=== PATIENT | male | born 1975 | race Caucasian/White ===

== ENCOUNTER 2017-10-27 14:26 | Emergency (ER) | payer MEDICAID ==
[~2017-10-27] VITALS: Ht 182.9 cm; Wt 130.6 kg
[2017-10-27 14:49] LABS: *BILIRUBIN,URIN 1+ (NEGATIVE); *BLOOD, URINE NEGATIVE (NEGATIVE); *CLARITY,URINE CLEAR (CLEAR); *COLOR,URINE DARK YELLOW (YELLOW); *KETONES,URINE NEGATIVE (NEGATIVE); *PROTEIN,URINE 1+ (NEGATIVE); *UROBILINOGEN,URINE 0.2 E.U./dl (NORMAL); LEUKOCYTE ESTERASE ,URINE NEGATIVE (NEGATIVE); NITRITE, URINE NEGATIVE (NEGATIVE); PH,URINE 6.5 (5.0-8.0); UGLUCOSE NEGATIVE (NEGATIVE)
--- NOTE | 2017-10-27 14:56 | NUR ---
LABS/URINE/EKG DONE, "SON" THE ADMINISTRATIVE ASSISTANT AT THE BEDSIDE A SITTER.
[2017-10-27 14:58] LABS: BASOPHILS # (AUTO) 0.1 K/uL (0.0-8.0); BASOPHILS % (AUTO) 0.9 % (0.0-2.0); EOSINOPHILS # (AUTO) 0.2 K/uL (0.0-0.7); EOSINOPHILS % (AUTO) 1.9 % (0.0-7.0); HEMATOCRIT 43.2 % (36.7-47.1); LYMPHOCYTES # (AUTO) 1.5 K/uL (20.0-40.0); LYMPHOCYTES % (AUTO) 19.1 % (20.5-51.5); MEAN CORPUSCULAR HEMOGLOBIN 29.9 uug (23.8-33.4); MEAN CORPUSCULAR HGB CONC 35 g/dL (32.5-36.3); MEAN CORPUSCULAR VOLUME 85.9 fL (73.0-96.2); MONOCYTES # (AUTO) 0.6 K/uL (2.0-10.0); MONOCYTES % (AUTO) 7.8 % (0.0-11.0); NEUTROPHILS # (AUTO) 5.7 K/uL (1.8-8.9); NEUTROPHILS % (AUTO) 70.3 % (38.5-71.5); PLATELET COUNT (AUTO) 211 K/uL (152-348); RED BLOOD CELL COUNT(AUTO) 5.03 MIL/uL (4.06-5.63); WHITE BLOOD COUNT (AUTO) 8.1 K/uL (3.6-10.2)
[2017-10-27 14:59] LABS: MUCUS,URINE MANY /LPF (0-FEW); WBC,URINE 0-3 /HPF (0-3)
[2017-10-27 15:06] LABS: CARBON DIOXIDE 26 mmol/L (21-32); CHLORIDE 100 mmol/L (98-107); CREATININE 1.1 mg/dL (0.6-1.3); GLUCOSE 125 mg/dL (74-106); POTASSIUM 3.4 mmol/L (3.5-5.1); UREA NITROGEN, BLOOD 15 mg/dL (7-18)
[2017-10-27 15:09] LABS: ETHANOL < 3 MG/DL (0-0)
[2017-10-27 15:10] LABS: *AMPHETAMINE, URINE POSITIVE (NEGATIVE); *BARBITURATE, URINE NEGATIVE (NEGATIVE); *CANNABINOID, URINE POSITIVE (NEGATIVE); *COCCAINE, URINE NEGATIVE (NEGATIVE); *OPIATE, URINE POSITIVE (NEGATIVE); *PHENCYCLIDINE SCREEN,URINE NEGATIVE (NEGATIVE)
[2017-10-27 15:12] LABS: ALANINE AMINOTRANSFERASE 113 U/L (16-63); ALKALINE PHOSPHATASE 49 U/L (50-136); ASPARTATE AMINOTRANSFERASE 64 U/L (15-37); BILIRUBIN,DIRECT 0.1 mg/dL (0.0-0.2); BILIRUBIN,TOTAL 0.5 mg/dL (0.2-1.0); TOTAL PROTEIN, SERUM 7.5 g/dL (6.4-8.2)
[2017-10-27 15:13] LABS: ACETAMINOPHEN < 2.0 ug/mL (10-30)
--- NOTE | 2017-10-27 15:48 | NUR ---
Patient awake at this time, requesting more food. Provided by staff.
--- NOTE | 2017-10-27 15:53 | NUR ---
Patient "Medically Cleared" by ERMD. Unable to contact MARKETING OFFICER at this time, will continue to call.
--- NOTE | 2017-10-27 16:40 | NUR ---
PET EALUATOR ARRIVED.
--- NOTE | 2017-10-27 19:04 | NUR ---
SBAR REPORT TO LAURA DOBBS.
--- NOTE | 2017-10-27 21:00 | NUR ---
Asad called for transport, given trip#[id number], eta 2245pm. Pt to be transported to [facility]. .
--- NOTE | 2017-10-27 22:31 | NUR ---
Report given to Natalya DOBBS [facility].
--- NOTE | 2017-10-27 22:45 | NUR ---
Asad arrived to ER to transport pt to [facility].
[2017-10-27] MEDS ORDERED: POTASSIUM CHLORIDE 20 MEQ TAB.PRT.SR PO ONE (23:00)
[2017-10-27] MEDS ORDERED: POTASSIUM CHLORIDE 20 MEQ TAB.PRT.SR ONE (23:04)
--- NOTE | 2017-10-27 23:05 | NUR ---
Pt out of ER via [facility]. Report and documentation given to EMT. Pt to be transported to [facility].
== END 2017-10-27 23:07 | disposition short-term general hospital (02) ==
LOC: ER 14:26
DX: Z04.6 Encounter for general psychiatric examination, requested by authority (principal); F32.9 Major depressive disorder, single episode, unspecified
CPT/HCPCS: 36415; 71045; 80307; 85025; 93005; A4663; G0480; G0480-TC

== ENCOUNTER 2017-11-23 07:38 | Emergency (ER) | payer MEDICAID ==
[~2017-11-23] VITALS: Ht 172.7 cm; Wt 77.1 kg
[2017-11-23] MEDS ORDERED: LORAZEPAM 0.5 MG TABLET PO ONE (08:00)
[2017-11-23] MEDS ORDERED: LORAZEPAM 1 MG TABLET ONE (08:01)
[2017-11-23 08:18] LABS: BASOPHILS % (AUTO) 0.8 % (0.0-2.0); EOSINOPHILS # (AUTO) 0.1 K/uL (0.0-0.7); EOSINOPHILS % (AUTO) 2.3 % (0.0-7.0); HEMATOCRIT 43.1 % (36.7-47.1); HEMOGLOBIN 15.1 g/dL (12.5-16.3); LYMPHOCYTES # (AUTO) 1.1 K/uL (20.0-40.0); LYMPHOCYTES % (AUTO) 17.5 % (20.5-51.5); MEAN CORPUSCULAR HEMOGLOBIN 31.3 uug (23.8-33.4); MEAN CORPUSCULAR HGB CONC 35 g/dL (32.5-36.3); MEAN CORPUSCULAR VOLUME 89.1 fL (73.0-96.2); MONOCYTES # (AUTO) 0.6 K/uL (2.0-10.0); MONOCYTES % (AUTO) 9.4 % (0.0-11.0); NEUTROPHILS # (AUTO) 4.4 K/uL (1.8-8.9); PLATELET COUNT (AUTO) 128 K/uL (152-348); RED BLOOD CELL COUNT(AUTO) 4.84 MIL/uL (4.06-5.63); WHITE BLOOD COUNT (AUTO) 6.3 K/uL (3.6-10.2)
--- NOTE | 2017-11-23 08:21 | NUR ---
[facility] cr provided for pt.
[2017-11-23 08:27] LABS: CARBON DIOXIDE 28 mmol/L (21-32); CHLORIDE 97 mmol/L (98-107); GLUCOSE 159 mg/dL (74-106); POTASSIUM 3.6 mmol/L (3.5-5.1); UREA NITROGEN, BLOOD 12 mg/dL (7-18)
[2017-11-23 08:30] LABS: ETHANOL < 3 MG/DL (0-0)
[2017-11-23 08:33] LABS: ALANINE AMINOTRANSFERASE 264 U/L (16-63); ALKALINE PHOSPHATASE 65 U/L (50-136); ASPARTATE AMINOTRANSFERASE 193 U/L (15-37); BILIRUBIN,DIRECT 0.6 mg/dL (0.0-0.2); BILIRUBIN,TOTAL 1.6 mg/dL (0.2-1.0); EOSINOPHILS % (MANUAL) 2 % (0-8); LYMPHOCYTES % (MANUAL) 18 % (20-40); MONOCYTES % (MANUAL) 10 % (2-10); NEUTROPHILS % (MANUAL) 70 % (42-75); TOTAL PROTEIN, SERUM 7.4 g/dL (6.4-8.2)
[2017-11-23 08:35] LABS: ACETAMINOPHEN < 2.0 ug/mL (10-30)
--- NOTE | 2017-11-23 09:17 | NUR ---
katiana jack at bedside for psych eval.
[2017-11-23 10:25] LABS: *BILIRUBIN,URIN NEGATIVE (NEGATIVE); *BLOOD, URINE NEGATIVE (NEGATIVE); *CLARITY,URINE CLEAR (CLEAR); *COLOR,URINE YELLOW (YELLOW); *KETONES,URINE NEGATIVE (NEGATIVE); *PROTEIN,URINE NEGATIVE (NEGATIVE); LEUKOCYTE ESTERASE ,URINE NEGATIVE (NEGATIVE); NITRITE, URINE NEGATIVE (NEGATIVE); PH,URINE 6.5 (5.0-8.0); UGLUCOSE NEGATIVE (NEGATIVE)
[2017-11-23 10:27] LABS: BACTERIA,URINE FEW /HPF (NONE SEEN); RBC,URINE 0-3 /HPF (0-3); SQUAMOUS EPITHELIAL CELL,UR FEW /HPF (NONE SEEN)
--- NOTE | 2017-11-23 10:27 | NUR ---
pt resting, no sign of distress at this point.
[2017-11-23 10:38] LABS: *AMPHETAMINE, URINE POSITIVE (NEGATIVE); *BARBITURATE, URINE NEGATIVE (NEGATIVE); *CANNABINOID, URINE POSITIVE (NEGATIVE); *COCCAINE, URINE NEGATIVE (NEGATIVE); *OPIATE, URINE POSITIVE (NEGATIVE); *PHENCYCLIDINE SCREEN,URINE NEGATIVE (NEGATIVE)
--- NOTE | 2017-11-23 10:47 | NUR ---
uds and ua result just released. faxed the result to [facility] at [phone] per request.
--- NOTE | 2017-11-23 11:50 | NUR ---
faxed summary report and face sheet to ciarra at [facility] per request.
--- NOTE | 2017-11-23 12:44 | NUR ---
called heidi to follow up. was told to follow up with benji capone, at [phone]. per arpan at [facility], the pt case is being reviwed at this time.
--- NOTE | 2017-11-23 13:10 | NUR ---
hospital lunch provided ofr pt. pt finished it with good apetite.
--- NOTE | 2017-11-23 13:11 | NUR ---
renate called from [facility] and accepted the pt. called for ambulance, eta 1300, #[id number].
--- NOTE | 2017-11-23 13:23 | NUR ---
called [facility] at [phone] and gave report to miesha.
--- NOTE | 2017-11-23 14:30 | NUR ---
pt transfered to [facility] via [facility] in stable condition.
--- NOTE | 2017-11-23 14:31 | NUR ---
pt resting the wholer er stay. no complain.
== END 2017-11-23 14:39 | disposition other institution (70) ==
LOC: ER 07:42
DX: F23 Brief psychotic disorder (principal); F11.10 Opioid abuse, uncomplicated; F32.9 Major depressive disorder, single episode, unspecified
CPT/HCPCS: 36415; 80048; 80076; 80307; 81001; 85025; 99285; A4663; G0480 ×2; G0481

== ENCOUNTER 2017-12-22 17:54 | Emergency (ER) | payer MEDICAID ==
[~2017-12-22] VITALS: Ht 172.7 cm; Wt 77.1 kg
[2017-12-22 18:28] LABS: BASOPHILS % (AUTO) 0.7 % (0.0-2.0); EOSINOPHILS # (AUTO) 0.1 K/uL (0.0-0.7); EOSINOPHILS % (AUTO) 0.9 % (0.0-7.0); HEMATOCRIT 37.7 % (36.7-47.1); HEMOGLOBIN 13.2 g/dL (12.5-16.3); LYMPHOCYTES # (AUTO) 1.1 K/uL (20.0-40.0); LYMPHOCYTES % (AUTO) 17.9 % (20.5-51.5); MEAN CORPUSCULAR HGB CONC 35 g/dL (32.5-36.3); MEAN CORPUSCULAR VOLUME 88.8 fL (73.0-96.2); MONOCYTES # (AUTO) 0.8 K/uL (2.0-10.0); NEUTROPHILS # (AUTO) 4.3 K/uL (1.8-8.9); NEUTROPHILS % (AUTO) 68.5 % (38.5-71.5); PLATELET COUNT (AUTO) 138 K/uL (152-348); RED BLOOD CELL COUNT(AUTO) 4.25 MIL/uL (4.06-5.63); WHITE BLOOD COUNT (AUTO) 6.3 K/uL (3.6-10.2)
[2017-12-22 18:36] LABS: CARBON DIOXIDE 28 mmol/L (21-32); CHLORIDE 101 mmol/L (98-107); GLUCOSE 109 mg/dL (74-106); POTASSIUM 3.2 mmol/L (3.5-5.1); UREA NITROGEN, BLOOD 7 mg/dL (7-18)
[2017-12-22 18:39] LABS: ETHANOL < 3 MG/DL (0-0)
[2017-12-22 18:48] LABS: ALANINE AMINOTRANSFERASE 99 U/L (16-63); ALKALINE PHOSPHATASE 50 U/L (50-136); ASPARTATE AMINOTRANSFERASE 135 U/L (15-37); BILIRUBIN,DIRECT 0.4 mg/dL (0.0-0.2); BILIRUBIN,TOTAL 1.3 mg/dL (0.2-1.0); TOTAL PROTEIN, SERUM 7.7 g/dL (6.4-8.2)
[2017-12-22 18:51] LABS: ACETAMINOPHEN < 2.0 ug/mL (10-30)
--- NOTE | 2017-12-22 19:49 | NUR ---
Debbie Barrera RN at bedside for psych evaluation.
[2017-12-22] MEDS ORDERED: ACETAMINOPHEN ES 500 MG TABLET PO ONE (20:15)
[2017-12-22] MEDS ORDERED: LORAZEPAM 0.5 MG TABLET PO ONE (20:15)
[2017-12-22] MEDS ORDERED: LORAZEPAM 1 MG TABLET ONE (20:21)
[2017-12-22] MEDS ORDERED: ACETAMINOPHEN ES 500 MG TABLET ONE (20:21)
--- NOTE | 2017-12-22 20:25 | NUR ---
Pt provided urine, sent to lab.
[2017-12-22] MEDS ORDERED: POTASSIUM BICARBONATE/CIT AC 25 MEQ TABLET.EFF PO ONE (20:30)
--- NOTE | 2017-12-22 20:31 | NUR ---
Pt refused Klyte med, reports he prefers a pill, notified.
[2017-12-22 20:32] LABS: *BILIRUBIN,URIN 1+ (NEGATIVE); *BLOOD, URINE NEGATIVE (NEGATIVE); *CLARITY,URINE SLIGHTLY CLOUDY (CLEAR); *COLOR,URINE DARK YELLOW (YELLOW); *KETONES,URINE 1+ (NEGATIVE); *PROTEIN,URINE 1+ (NEGATIVE); LEUKOCYTE ESTERASE ,URINE NEGATIVE (NEGATIVE); NITRITE, URINE NEGATIVE (NEGATIVE); PH,URINE 5.5 (5.0-8.0); UGLUCOSE NEGATIVE (NEGATIVE)
[2017-12-22] MEDS ORDERED: POTASSIUM BICARBONATE/CIT AC 25 MEQ TABLET.EFF ONE (20:34)
[2017-12-22] MEDS ORDERED: POTASSIUM CHLORIDE 20 MEQ TAB.PRT.SR ONE (20:39)
[2017-12-22 20:40] LABS: BACTERIA,URINE MODERATE /HPF (NONE SEEN); URINE AMORPHOUS URATE MODERATE /HPF; WBC,URINE 0-3 /HPF (0-3)
[2017-12-22 20:41] LABS: MUCUS,URINE MODERATE /LPF (0-FEW)
[2017-12-22] MEDS ORDERED: POTASSIUM CHLORIDE 20 MEQ TAB.PRT.SR PO ONE (20:45)
[2017-12-22 20:47] LABS: *AMPHETAMINE, URINE POSITIVE (NEGATIVE); *BARBITURATE, URINE NEGATIVE (NEGATIVE); *CANNABINOID, URINE POSITIVE (NEGATIVE); *COCCAINE, URINE NEGATIVE (NEGATIVE); *OPIATE, URINE POSITIVE (NEGATIVE); *PHENCYCLIDINE SCREEN,URINE NEGATIVE (NEGATIVE)
--- NOTE | 2017-12-22 22:50 | NUR ---
Pt accepted at [facility], [address] [place] [address], accepting MD Dr. Blum, Number to report to .
--- NOTE | 2017-12-22 23:22 | NUR ---
Called [facility] [employer] Trip#[id number], given ETA 30min ~0000. To transport patient to [facility].
--- NOTE | 2017-12-22 23:36 | NUR ---
Report given to Brain DOBBS [facility].
--- NOTE | 2017-12-23 | NUR ---
Asad arrived to ER to transport pt to [facility]. Report and documentation given to EMT.
--- NOTE | 2017-12-23 00:14 | NUR ---
Pt out of ER via [facility], to be transported to [facility].
== END 2017-12-23 00:20 | disposition short-term general hospital (02) ==
LOC: ER 17:56
DX: F32.9 Major depressive disorder, single episode, unspecified (principal); R45.851 Suicidal ideations; F15.10 Other stimulant abuse, uncomplicated; F11.10 Opioid abuse, uncomplicated; D69.6 Thrombocytopenia, unspecified; R94.5 Abnormal results of liver function studies; F41.9 Anxiety disorder, unspecified; F17.200 Nicotine dependence, unspecified, uncomplicated; Z59.0 Homelessness
CPT/HCPCS: 36415; 80048; 80076; 80307; 81001; 85025; 99285; A4663; A9150; G0480 ×2; G0481

== ENCOUNTER 2017-12-30 18:02 | Emergency (ER) | payer MEDICAID ==
[~2017-12-30] VITALS: Ht 182.9 cm; Wt 108.9 kg
--- NOTE | 2017-12-30 18:10 | NUR ---
Pt states he was prescribed medications from [facility] but he did not fill the Rx's and is not taking any medications currently.
[2017-12-30 19:06] LABS: BASOPHILS # (AUTO) 0.1 K/uL (0.0-8.0); EOSINOPHILS # (AUTO) 0.2 K/uL (0.0-0.7); EOSINOPHILS % (AUTO) 2.6 % (0.0-7.0); HEMATOCRIT 43.6 % (36.7-47.1); HEMOGLOBIN 15.4 g/dL (12.5-16.3); LYMPHOCYTES # (AUTO) 2.2 K/uL (20.0-40.0); LYMPHOCYTES % (AUTO) 33.4 % (20.5-51.5); MEAN CORPUSCULAR HEMOGLOBIN 31.2 uug (23.8-33.4); MEAN CORPUSCULAR HGB CONC 35 g/dL (32.5-36.3); MEAN CORPUSCULAR VOLUME 88.5 fL (73.0-96.2); MONOCYTES # (AUTO) 0.8 K/uL (2.0-10.0); MONOCYTES % (AUTO) 11.4 % (0.0-11.0); NEUTROPHILS # (AUTO) 3.4 K/uL (1.8-8.9); NEUTROPHILS % (AUTO) 51.6 % (38.5-71.5); PLATELET COUNT (AUTO) 231 K/uL (152-348); RED BLOOD CELL COUNT(AUTO) 4.92 MIL/uL (4.06-5.63); WHITE BLOOD COUNT (AUTO) 6.7 K/uL (3.6-10.2)
--- NOTE | 2017-12-30 19:11 | NUR ---
sbar reportb to celia fuller, urine sent/labs drawn
[2017-12-30 19:13] LABS: CARBON DIOXIDE 26 mmol/L (21-32); CHLORIDE 102 mmol/L (98-107); CREATININE 1.3 mg/dL (0.6-1.3); GLUCOSE 107 mg/dL (74-106); POTASSIUM 4.2 mmol/L (3.5-5.1); UREA NITROGEN, BLOOD 15 mg/dL (7-18)
[2017-12-30 19:16] LABS: *BILIRUBIN,URIN NEGATIVE (NEGATIVE); *BLOOD, URINE NEGATIVE (NEGATIVE); *CLARITY,URINE CLEAR (CLEAR); *COLOR,URINE YELLOW (YELLOW); *KETONES,URINE NEGATIVE (NEGATIVE); *PROTEIN,URINE NEGATIVE (NEGATIVE); *UROBILINOGEN,URINE 0.2 E.U./dl (NORMAL); LEUKOCYTE ESTERASE ,URINE NEGATIVE (NEGATIVE); NITRITE, URINE NEGATIVE (NEGATIVE); PH,URINE 5.5 (5.0-8.0); UGLUCOSE NEGATIVE (NEGATIVE)
[2017-12-30 19:18] LABS: ETHANOL < 3 MG/DL (0-0)
[2017-12-30 19:28] LABS: ACETAMINOPHEN < 2.0 ug/mL (10-30); ALANINE AMINOTRANSFERASE 48 U/L (16-63); ALKALINE PHOSPHATASE 62 U/L (50-136); ASPARTATE AMINOTRANSFERASE 29 U/L (15-37); BILIRUBIN,DIRECT 0.1 mg/dL (0.0-0.2); BILIRUBIN,TOTAL 0.5 mg/dL (0.2-1.0); TOTAL PROTEIN, SERUM 8.4 g/dL (6.4-8.2)
[2017-12-30 19:31] LABS: *AMPHETAMINE, URINE NEGATIVE (NEGATIVE); *BARBITURATE, URINE NEGATIVE (NEGATIVE); *CANNABINOID, URINE POSITIVE (NEGATIVE); *COCCAINE, URINE NEGATIVE (NEGATIVE); *OPIATE, URINE NEGATIVE (NEGATIVE); *PHENCYCLIDINE SCREEN,URINE NEGATIVE (NEGATIVE)
[2017-12-30 19:35] LABS: MUCUS,URINE MANY /LPF (0-FEW); WBC,URINE 0-3 /HPF (0-3)
--- NOTE | 2017-12-30 19:35 | NUR ---
Spoke to Nenita from PET team, ETA 1 hr.
--- NOTE | 2017-12-30 20:10 | NUR ---
Pinky here to evaluate pt.
--- NOTE | 2017-12-30 22:17 | NUR ---
Report given to Ana from [facility] Johan Rocha.
--- NOTE | 2017-12-30 22:24 | NUR ---
Adriana Rogers for transport from [facility] to [facility] ([address] [place], [place]). ETA 1.5 hrs at 0000. Trip#[id number]
--- NOTE | 2017-12-30 22:25 | NUR ---
at this time, pt is resting comfortably in bed with eyes closed. vss. no acute distress noted.
--- NOTE | 2017-12-31 00:22 | NUR ---
Patient Transfers to [facility] Johan Rocha picked up by Ken [facility]. NAD noted. VSS.
== END 2017-12-31 00:24 | disposition short-term general hospital (02) ==
LOC: ER 18:02
DX: R45.851 Suicidal ideations (principal); F12.10 Cannabis abuse, uncomplicated; F32.9 Major depressive disorder, single episode, unspecified; F41.9 Anxiety disorder, unspecified; F31.9 Bipolar disorder, unspecified; F17.200 Nicotine dependence, unspecified, uncomplicated; Z59.0 Homelessness
CPT/HCPCS: 36415; 80307; 85025; A4663; G0480; G0480-TC

== ENCOUNTER 2022-05-02 11:46 | Emergency (ER) | payer MEDICAID, OTHER ==
[~2022-05-02] VITALS: Ht 182.9 cm; Wt 79.4 kg
--- NOTE | 2022-05-02 12:01 | NUR ---
Patient is seen eating lunch tray with good appetite, pending medical clearance for possible voluntary psych admission.
[2022-05-02 12:27] LABS: MEAN CORPUSCULAR HEMOGLOBIN 29.2 uug (23.8-33.4); MEAN CORPUSCULAR VOLUME 86.3 fL (73.0-96.2); PLATELET COUNT (AUTO) 291 K/uL (152-348)
--- NOTE | 2022-05-02 12:33 | NUR ---
face-to face notification of RN cupola melting supervisor Marielena and security team lead Prashanth re: "This patient in ER bed 5 has suicidal ideation by overdosing." pending 1:1 sitter at this time
[2022-05-02 12:39] LABS: CARBON DIOXIDE 31 mmol/L (21-32); CHLORIDE 102 mmol/L (98-107); GLUCOSE 98 mg/dL (74-106); UREA NITROGEN, BLOOD 9 mg/dL (7-18)
--- NOTE | 2022-05-02 12:39 | NUR ---
Per lab staff Sirisha, "This patient needs more urine specimen for urine drug screen test."
--- NOTE | 2022-05-02 12:40 | NUR ---
Patient was instructed to give more urine sample for urine drug test. Urinal is at bedside.
[2022-05-02 12:52] LABS: ALANINE AMINOTRANSFERASE 17 U/L (16-63); ALKALINE PHOSPHATASE 60 U/L (50-136); ASPARTATE AMINOTRANSFERASE 21 U/L (15-37); BILIRUBIN,DIRECT 0.1 mg/dL (0.0-0.2); BILIRUBIN,TOTAL 0.2 mg/dL (0.2-1.0); TOTAL PROTEIN, SERUM 7.8 g/dL (6.4-8.2)
[2022-05-02 12:53] LABS: ACETAMINOPHEN < 2.0 ug/mL (10-30)
--- NOTE | 2022-05-02 12:56 | NUR ---
Patient is resting comfortably on gurney with eyes closed.
[2022-05-02 13:15] LABS: ETHANOL < 3 MG/DL (0-0)
--- NOTE | 2022-05-02 13:18 | NUR ---
2 milk cartons (hospital provided) were given to patient per patient's request, still pending additional urine specimen.
[2022-05-02] MEDS ORDERED: LORAZEPAM 0.5 MG TABLET PO ONE ×2 (13:30→17:15)
[2022-05-02] MEDS ORDERED: LORAZEPAM 1 MG TABLET ONE (13:34)
[2022-05-02 13:46] LABS: *BILIRUBIN,URIN NEGATIVE (NEGATIVE); *BLOOD, URINE NEGATIVE (NEGATIVE); *CLARITY,URINE CLEAR (CLEAR); *COLOR,URINE YELLOW (YELLOW); *KETONES,URINE NEGATIVE (NEGATIVE); *UROBILINOGEN,URINE 0.2 E.U./dl (NORMAL); LEUKOCYTE ESTERASE ,URINE NEGATIVE (NEGATIVE); NITRITE, URINE NEGATIVE (NEGATIVE); UGLUCOSE NEGATIVE (NEGATIVE)
[2022-05-02 13:56] LABS: *AMPHETAMINE, URINE POSITIVE (NEGATIVE); *CANNABINOID, URINE POSITIVE (NEGATIVE); *COCCAINE, URINE NEGATIVE (NEGATIVE); *OPIATE, URINE NEGATIVE (NEGATIVE); *PHENCYCLIDINE SCREEN,URINE NEGATIVE (NEGATIVE)
--- NOTE | 2022-05-02 15:16 | NUR ---
Fax confirmation received. Patient's ER records were faxed to [facility], pending callback from [facility] psych spinning room workerPranay for disposition re: clinical review results and possible transfer.
--- NOTE | 2022-05-02 15:28 | NUR ---
5th milk carton was given per patient's request, pending callback from [facility] at this time.
--- NOTE | 2022-05-02 16:19 | NUR ---
Patient is resting comfortably on gurney with eyes closed. Nurse SBAR given to RINKU Angeles of [facility] accepted report.
--- NOTE | 2022-05-02 16:45 | NUR ---
Patient will tranfer to outside Facility: [facility] Physician:Sue Location: unit 2 [facility] E[id number] of [facility]
--- NOTE | 2022-05-02 16:46 | NUR ---
Patient was updated. 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
--- NOTE | 2022-05-02 17:11 | NUR ---
Patient wants more "medicine to help me relax". notified.
--- NOTE | 2022-05-02 17:14 | NUR ---
[facility] unit# is here. SBAR given to EMT Rosaura. Patient started getting anxious, notified.
[2022-05-02] MEDS ORDERED: LORAZEPAM 2 MG/1 ML VIAL ONE (17:17)
[2022-05-02] MEDS: LORAZEPAM 2 MG/1 ML VIAL IM ONE ×2 (17:31→17:38)
[2022-05-02] MEDS ORDERED: BUPRENORPHINE HCL 2 MG TAB.SUBL SL ONE ×2 (17:37→17:45)
--- NOTE | 2022-05-02 17:49 | NUR ---
Patient left ER in stable condition and going to [facility] unit 2. Updated nursing SBAR given to nurse Angeles of [facility] unit 2 , tel# extension [phone].
== END 2022-05-02 17:49 ==
LOC: ER 11:57
DX: R45.851 Suicidal ideations (principal); F19.10 Other psychoactive substance abuse, uncomplicated; F32.A Depression, unspecified; Z86.19 Personal history of other infectious and parasitic diseases; Z20.822 Contact with and (suspected) exposure to COVID-19
CPT/HCPCS: 80076; 80048; 81003; 85025; 87426; 36415; 99285; 96372; 80299; 80320; 80307; J2060; A4663; G0480